=== PATIENT | male | born 1950 | race Hispanic/Latino ===

== ENCOUNTER 2016-10-07 08:38 | Day surgery (SDC) | payer MEDICARE, BC ==
[2016-10-07] MEDS ORDERED: Tetracaine 0.5% Ophth 2 ML BOTTLE ONE (08:46)
[2016-10-07] MEDS ORDERED: Tropicamide 1% Opht SOLUTION ONE (08:46)
[2016-10-07] MEDS ORDERED: APRACLONIDINE 0.5% ONE (08:46)
[2016-10-07] MEDS ORDERED: FLUORESCEIN ONE (08:47)
[2016-10-07] MEDS ORDERED: HYPROMELLOSE 2.5% ONE (08:47)
[2016-10-07] MEDS ORDERED: PrednisoLONE 1% Opht Susp(5 ml) ONE (08:47)
[2016-10-07] MEDS ORDERED: PHENYLEPHRINE 2.5% ONE (09:03)
[2016-10-07] MEDS ORDERED: Pilocarpine 2% Opht (15ml) ONE (09:03)
[2016-10-07 10:32] VITALS: O2SAT 96
[2016-10-07 10:40] VITALS: BP 141/84; PULSE 64; RESP 18; TEMP 98
== END 2016-10-07 10:15 | disposition home or self-care (01) ==
LOC: OPSURG 08:38
DX: H40.031 Anatomical narrow angle, right eye (principal)

== ENCOUNTER 2016-10-14 08:49 | Day surgery (SDC) | payer MEDICARE, BC ==
[2016-10-14 09:10] VITALS: RESP 18; O2SAT 99
[2016-10-14 10:18] VITALS: BP 125/80; PULSE 66; TEMP 97.8
== END 2016-10-14 10:15 | disposition home or self-care (01) ==
LOC: OPSURG 08:49
DX: H40.032 Anatomical narrow angle, left eye (principal); E78.00 Pure hypercholesterolemia, unspecified